=== PATIENT | female | born 1995 | race Caucasian/White ===

== ENCOUNTER 2017-08-07 15:01 | Emergency (ER) | payer MEDICAID, OTHER ==
[2017-08-07 15:37] VITALS: TEMP 98; O2SAT 99
[2017-08-07] MEDS ORDERED: Sodium Chloride 0.9% 1,000 ML IV STA (15:49)
--- NOTE | 2017-08-07 16:19 | ED PDOC ---
Arrival/HPI - General Chief Complaint: Headache Time Seen by Provider: 08/07/17 15:03 Historian: Patient - History of Present Illness Narrative History of Present Illness (Text): 08/07/17 15:49 22 year old female, whose past medical history includes frequent headaches, presents to the emergency department complaining of headache with associated nausea for over a month. Patient reports experiencing migraine around her eyes, behind her ears, and around head. Also patient is sensitive to light and feels it worsens her headache. She has vomited before due to mirgraine but usually experiences only nausea. Patient denies of any fever, abdominal pain, chest pain , shortness of breath, or any other complaints. No PMD Past Medical History - Provider Review Nursing Documentation Reviewed: Yes - Cardiac Hx Cardiac Disorders: No - Pulmonary Hx Respiratory Disorders: No - Neurological Hx Migraine: Yes - HEENT Hx HEENT Disorder: No - Renal Hx Renal Disorder: No - Endocrine/Metabolic Hx Endocrine Disorders: No - Hematological/Oncological Hx Blood Disorders: No - Integumentary Hx Dermatological Disorder: No - Musculoskeletal/Rheumatological Hx Musculoskeletal Disorders: No - Gastrointestinal Hx Gastrointestinal Disorders: No - Genitourinary/Gynecological Hx Genitourinary Disorders: No - Psychiatric Hx Psychophysiologic Disorder: No Hx Substance Use: No Family/Social History - Physician Review Nursing Documentation Reviewed: Yes Family/Social History: No Known Family HX Smoking Status: Never Smoked Hx Alcohol Use: No Hx Substance Use: No Allergies/Home Meds Allergies/Adverse Reactions: Allergies No Known Allergies Allergy (Verified 08/07/17 15:23) Review of Systems - Physician Review All systems were reviewed & negative as marked: Yes - Review of Systems Constitutional: absent: Fevers Eyes: Other (sensitivity to light worsening headache) Respiratory: absent: SOB Cardiovascular: absent: Chest Pain Gastrointestinal: Nausea. absent: Abdominal Pain Neurological: Headache Physical Exam Vital Signs Reviewed: Yes Vital Signs Temp Pulse Resp BP Pulse Ox 08/07/17 16:47 94 H 18 138/86 99 08/07/17 15:35 98.0 F 102 H 17 142/96 H 99 Temperature: Afebrile Blood Pressure: Normal Pulse: Regular Respiratory Rate: Normal Appearance: Positive for: Well-Appearing Pain Distress: None Mental Status: Positive for: Alert and Oriented X 3 - Systems Exam Head: Present: Atraumatic, Normocephalic Pupils: Present: PERRL Extroacular Muscles: Present: EOMI Conjunctiva: Present: Normal Mouth: Present: Moist Mucous Membranes Pharnyx: Present: Normal. No: ERYTHEMA, EXUDATE Neck: Present: Normal Range of Motion Respiratory/Chest: Present: Clear to Auscultation, Good Air Exchange. No: Respiratory Distress, Accessory Muscle Use Cardiovascular: Present: Regular Rate and Rhythm, Normal S1, S2. No: Murmurs Abdomen: Present: Normal Bowel Sounds. No: Tenderness, Distention, Peritoneal Signs Back: Present: Normal Inspection Upper Extremity: Present: Normal Inspection. No: Cyanosis, Edema Lower Extremity: Present: Normal Inspection. No: Edema Neurological: Present: GCS=15, CN II-XII Intact, Speech Normal, Motor Func Grossly Intact, Normal Sensory Function, Normal Cerebellar Funct, Norm Deep Tendon Reflexes, Gait Normal, Memory Normal, Normal 2Pt Descrimination Skin: Present: Warm, Dry, Normal Color. No: Rashes Psychiatric: Present: Alert, Oriented x 3, Normal Insight, Normal Concentration Medical Decision Making ED Course and Treatment: 08/07/17 15:53 Impression: 22 year old female with headache with associated nausea. Normal physical exam and normal neuro exam. Plan: -- Brain CT -- Toradol -- Reglan -- IV Fluids -- Urine Test -- Reassess and disposition Progress Notes: 08/07/2017 16:[address] IMPRESSION: Blurring of iniguez-white matter differentiation with effacement of the cortical sulci and slit-like ventricles. The differential considerations include cerebral edema, benign intracranial hypertension, and benign intracranial hypotension. An MRI of the brain without and with intravenous contrast is recommended of further evaluation. Dictator: Janina Grant MD 08/07/17 18:09 Patient with headache consistent with migraine; neuro exam is normal. Imaging is unremarkable. Patient feels much better s/p meds - ok for d/c to f/u in the medical clinic. - RAD Interpretation Radiology Orders: 08/07/17 15:48 Brain [HEAD W/O CONTRAST] [CT] Stat - Medication Orders Current Medication Orders: Discontinued Medications Sodium Chloride (Sodium Chloride 0.9%) 1,000 mls @ 999 mls/hr IV .Q1H1M STA Stop: 08/07/17 16:49 Last Admin: 08/07/17 16:17 Dose: 999 mls/hr eMAR Start Stop Document 08/07/17 16:17 IT (Rec: 08/07/17 16:17 IT [id number]) Intravenous Solution Start Date 08/07/17 Start Time 16:17 End Date 08/07/17 End time 17:17 Total Infusion Time 60 Ketorolac Tromethamine (Toradol) 30 mg IVP STAT STA Stop: 08/07/17 15:50 Last Admin: 08/07/17 16:17 Dose: 30 mg MAR Pain Assessment Document 08/07/17 16:17 IT (Rec: 08/07/17 16:17 IT [id number]) Pain Reassessment Is this a pain reassessment? No Sleep Is patient sleeping during reassessment? No Presence of Pain Presence of Pain Yes Pain Scale Used Pain Scale Used Numeric Location Pain Location Body Case Supervisor Description Description Constant Intensity of Pain at present 8 Pain Behavior Facial Grimacing IVP Administration Document 08/07/17 16:17 IT (Rec: 08/07/17 16:17 IT [id number]) Charges for Administration # of IVP Administrations 1 Metoclopramide HCl (Reglan) 10 mg IVP STAT STA Stop: 08/07/17 15:50 Last Admin: 08/07/17 16:44 Dose: 10 mg IVP Administration Document 08/07/17 16:44 IT (Rec: 08/07/17 16:47 IT [id number]) Charges for Administration # of IVP Administrations 1 - Scribe Statement The provider has reviewed the documentation as recorded by the Gem Florez Provider Scribe Attestation: All medical record entries made by the Gem were at my direction and personally dictated by me. I have reviewed the chart and agree that the record accurately reflects my personal performance of the history, physical exam, medical decision making, and the department course for this patient. I have also personally directed, reviewed, and agree with the discharge instructions and disposition. Disposition/Present on Arrival - Present on Arrival Any Indicators Present on Arrival: No History of DVT/PE: No History of Uncontrolled Diabetes: No Urinary Catheter: No History of Decub. Ulcer: No History Surgical Site Infection Following: None - Disposition Have Diagnosis and Disposition been Completed?: Yes Diagnosis: Migraine headache Disposition: HOME/ ROUTINE Disposition Time: 18:10 Patient Plan: Discharge Condition: GOOD Discharge Instructions (ExitCare): Migraine Headache (ED) Additional Instructions: Avoid any possible triggers that may induce migraines. Use naprosyn for pain; if no relief, use the fioricet as prescribed. Follow up in the medical clinic. Return to the emergency department if any new concerning symptoms. Prescriptions: Acetaminophen/Butalbital/Caf [Fioricet] 1 - 2 tab PO Q6H PRN #15 tab PRN Reason: Headache Naproxen [Naprosyn] 500 mg PO BID PRN #20 tab PRN Reason: Pain Referrals: [facility] [place] - Follow up with primary Forms: iRewind (Guyanese)
--- NOTE | 2017-08-07 16:42 | CT ---
PROCEDURE: CT HEAD WITHOUT CONTRAST. HISTORY: Headache COMPARISON: None available. TECHNIQUE: Axial computed tomography images were obtained through the head/brain without intravenous contrast. Radiation dose: Total exam DLP = 725.84 mGy-cm. This CT exam was performed using one or more of the following dose reduction techniques: Automated exposure control, adjustment of the mA and/or kV according to patient size, and/or use of iterative reconstruction technique. FINDINGS: HEMORRHAGE: No intracranial hemorrhage. BRAIN: [place]-white matter differentiation is preserved. There is no mass, mass effect or abnormal extra-axial fluid collection. There is no territorial infarction. VENTRICLES: The ventricles are normal in size, shape and configuration. CALVARIUM: The skull base and calvarium are normal. PARANASAL SINUSES: Predominantly clear. MASTOID AIR CELLS: Predominantly clear. OTHER FINDINGS: None. IMPRESSION: No acute intracranial abnormality.
[2017-08-07 16:48] VITALS: BP 138/86; PULSE 94; RESP 18
== END 2017-08-07 18:16 | disposition home or self-care (01) ==
LOC: ED 15:01
DX: G43.909 Migraine, unspecified, not intractable, without status migrainosus (principal)
CPT/HCPCS: 70450; 96361; 96374; 96375; 99285; J1885; J2765; J7040

== ENCOUNTER 2017-08-22 09:57 | Emergency (ER) | payer MEDICAID, OTHER ==
--- NOTE | 2017-08-22 10:00 | ED PDOC ---
Arrival/HPI - General Time Seen by Provider: 08/22/17 09:58 Historian: Patient - History of Present Illness Narrative History of Present Illness (Text): 08/22/17 10:00 22 y/o female, pmh including migraine headache, nkda, LMP 07/08/2017, , c/o vaginal spotting and pelvic cramp started last night but resolved. Pt. stated that she noticed vaginal bleeding stain on the tissue when going to the bathroom with mild pelvic pain, no abdominal pain, no nausea or vomiting, no fever or chills, no headache or night sweat, no dizziness, no other medical or psychological complaints. Past Medical History - Provider Review Nursing Documentation Reviewed: Yes - Infectious Disease Hx of Infectious Diseases: None - Cardiac Hx Cardiac Disorders: No - Pulmonary Hx Respiratory Disorders: No - Neurological Hx Migraine: Yes - HEENT Hx HEENT Disorder: No - Renal Hx Renal Disorder: No - Endocrine/Metabolic Hx Endocrine Disorders: No - Hematological/Oncological Hx Blood Disorders: No - Integumentary Hx Dermatological Disorder: No - Musculoskeletal/Rheumatological Hx Musculoskeletal Disorders: No - Gastrointestinal Hx Gastrointestinal Disorders: No - Genitourinary/Gynecological Hx Genitourinary Disorders: No - Psychiatric Hx Psychophysiologic Disorder: No Hx Substance Use: No - Anesthesia Hx Anesthesia: No Family/Social History - Physician Review Nursing Documentation Reviewed: Yes Family/Social History: Unknown Family HX Smoking Status: Never Smoked Hx Alcohol Use: No Hx Substance Use: No Allergies/Home Meds Allergies/Adverse Reactions: Allergies No Known Allergies Allergy (Verified 01/11/16 11:35) Review of Systems - Review of Systems Constitutional: absent: Fatigue, Fevers Eyes: absent: Vision Changes ENT: absent: Hearing Changes Respiratory: absent: SOB, Cough Cardiovascular: absent: Chest Pain Gastrointestinal: absent: Abdominal Pain, Nausea, Vomiting Genitourinary Female: Vaginal Bleeding. absent: Dysuria, Frequency, Hematuria, Urine Output Changes, Vaginal Discharge Musculoskeletal: absent: Arthralgias, Myalgias Skin: absent: Rash, Pruritis Neurological: absent: Headache, Dizziness Psychiatric: absent: Anxiety, Depression Physical Exam Vital Signs Reviewed: Yes Vital Signs Temp Pulse Resp BP Pulse Ox 08/22/17 12:04 75 18 118/69 100 08/22/17 10:42 98.9 F 81 16 121/71 100 Temperature: Afebrile Blood Pressure: Normal Pulse: Regular Respiratory Rate: Normal Appearance: Positive for: Well-Appearing, Non-Toxic, Comfortable Pain Distress: None Mental Status: Positive for: Alert and Oriented X 3 - Systems Exam Head: Present: Atraumatic, Normocephalic Pupils: Present: PERRL Extroacular Muscles: Present: EOMI Conjunctiva: Present: Normal Mouth: Present: Moist Mucous Membranes Neck: Present: Normal Range of Motion Respiratory/Chest: Present: Clear to Auscultation, Good Air Exchange. No: Respiratory Distress, Accessory Muscle Use Cardiovascular: Present: Regular Rate and Rhythm, Normal S1, S2. No: Murmurs Abdomen: Present: Normal Bowel Sounds. 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 No: Vaginal Discharge, Vaginal Bleeding, Vaginal Lesions, Adenexal Tenderness, Adenexal Mass, Cervical Motion Tendernes, Odor Back: Present: Normal Inspection Upper Extremity: Present: Normal Inspection. No: Cyanosis, Edema Lower Extremity: Present: Normal Inspection. No: Edema Neurological: Present: GCS=15, Speech Normal, Motor Func Grossly Intact, Gait Normal, Memory Normal Skin: Present: Warm, Dry, Normal Color. No: Rashes Psychiatric: Present: Alert, Oriented x 3, Normal Insight, Normal Concentration Medical Decision Making ED Course and Treatment: 08/22/17 10:29 -labs/ua -transvaginal sonogram -observe and reassess 08/22/17 13:57 -Labs are non-significant except beta hcg 8229 -UA show no UTI -Blood type: B+ -Sonogram show: An intrauterine gestation is identified however only a yolk sac is present. The pole is not yet identified. The average zones ultrasonic age is approximately 5 weeks 2 days which is borderline concordant with menstrual dates as discussed above. Consider early intrauterine gestation versus failure of gestation. Ectopic gestation is not demonstrated and is not favored. Further clinical correlation is advised a follow-up ultrasound is advised in 1 week or earlier if indicated. -Pt. has no active vaginal bleeding, no pelvic/abdominal pain. -Case discussed with DR. Forrester, he agreed on the diagnosis/treatment/discharge plan. -Discharge home with education on pelvic rest, no sex/strenuous exercise or activity until you are clear by the obgyn, follow up with your own pmd and obgyn within 2 days and repeat the beta hcg as it is 8229 today plus follow up the sonogram, return to the ER for any new or worsening signs or symptoms. - Lab Interpretations Lab Results: 08/22/17 10:47 08/22/17 10:47 Lab Results 08/22/17 12:00: Blood Type Confirm B POSITIVE 08/22/17 11:53: Blood Type B POSITIVE, Antibody Screen Negative, BBK History Checked No verified bt 08/22/17 10:47: Beta HCG, Quant 8229.10 H 08/22/17 10:47: Sodium 138, Potassium 4.2, Chloride 103, Carbon Dioxide 24, Anion Gap 15, BUN 9, Creatinine 0.5 L, Est GFR ( Amer) > 60, Est GFR (Non -Af Amer) > 60, Random Glucose 98, Calcium 9.1, Total Bilirubin 0.9, AST 29, ALT 41, Alkaline Phosphatase 59, Total Protein 7.7, Albumin 4.6, Globulin 3.1, Albumin/Globulin Ratio 1.5 08/22/17 10:47: Urine Color Yellow, Urine Appearance Clear, Urine pH 6.0, Ur Specific [place] >= 1.030, Urine Protein Negative, Urine Glucose (UA) Negative, Urine Ketones Negative, Urine Blood Negative, Urine Nitrate Negative, Urine Bilirubin Negative, Urine Urobilinogen 0.2, Ur Leukocyte Esterase Negative 08/22/17 10:47: WBC 8.9, RBC 4.46, Hgb 12.3, Hct 37.8, MCV 84.8, MCH 27.6, MCHC 32.5, RDW 13.7, Plt Count 355, MPV 9.3, Gran % 65.5, Lymph % (Auto) 26.0, Jack % (Auto) 7.2 H, Eos % (Auto) 1.1 L, Baso % (Auto) 0.2, Gran # 5.83, Lymph # 2.3 , Jack # 0.6, Eos # 0.1, Baso # 0.02 Interpretation: Abnormal lab values (beta hcg 8229) - RAD Interpretation Radiology Orders: 08/22/17 10:25 OB TRANSVAGINAL [US] Stat HISTORY: , spotting, on and off pain COMPARISON: None available. TECHNIQUE: Transvaginal obstetric ultrasound was performed in longitudinal and transverse planes. FINDINGS: UTERUS: Measures 8.4 x 4.3 x 5.8 cm. Uterus appears anteverted and is mildly enlarged due to an intrauterine gestation with yolk sac identified but no definable pole at this time. The mean sac diameter measures 1.2 cm corresponds to an approximate gestational age of 5 weeks 2 days. The last menstrual period is reported 04/14/2018 suggesting in his gestational age of 6 weeks 3 days. The finding may represent early viable intrauterine gestation however this is not been proven as a pole is not identified. Consider a failure of gestation. An ectopic is not demonstrated and is unlikely with the bilateral necks compartment unremarkable appearing grossly. ENDOMETRIUM: Intrauterine gestation as discussed above. CERVIX: No cervical abnormality identified. RIGHT OVARY: Measures 3.4 x 2.4 x 2.7 cm. No solid mass. Normal flow. LEFT OVARY: Measures 3.6 x 2.0 x 2.1 cm. No solid mass. Normal flow. FREE FLUID: No significant free fluid noted. OTHER FINDINGS: None. IMPRESSION: An intrauterine gestation is identified however only a yolk sac is present. The pole is not yet identified. The average zones ultrasonic age is approximately 5 weeks 2 days which is borderline concordant with menstrual dates as discussed above. Consider early intrauterine gestation versus failure of gestation. Ectopic gestation is not demonstrated and is not favored. Further clinical correlation is advised a follow-up ultrasound is advised in 1 week or earlier if indicated. Technology Sales Specialist: Radiologist - PA / FINANCE CONSULTANT / Resident Statement / has reviewed & agrees with the documentation as recorded. Disposition/Present on Arrival - Present on Arrival Any Indicators Present on Arrival: No History of DVT/PE: No History of Uncontrolled Diabetes: No Urinary Catheter: No History of Decub. Ulcer: No History Surgical Site Infection Following: None - Disposition Have Diagnosis and Disposition been Completed?: Yes Diagnosis: Vaginal bleeding in Disposition: HOME/ ROUTINE Disposition Time: 13:11 Patient Plan: Discharge Patient Problems: Current Active Problems Problem Status Onset Vaginal bleeding in Acute Condition: GOOD Additional Instructions: -Discharge home with education on pelvic rest, no sex/strenuous exercise or activity until you are clear by the obgyn, return to the ER for any new or worsening signs or symptoms. Referrals: PCP,NO [Primary Care Provider] - Follow up with primary Isreal Al MD [Staff Provider] - Follow up with primary Forms: WORK NOTE
[2017-08-22 10:12] VITALS: BMI 34.2
[2017-08-22 10:43] VITALS: TEMP 98.9; O2SAT 100
[2017-08-22 10:59] LABS: BASO # 0.02 K/mm3 (0.0-2.0); BASO % 0.2 % (0.0-3.0); EOS # 0.1 (0.0-0.7); EOS % 1.1 % (1.5-5.0); GRAN # 5.83 (1.4-6.5); GRAN % 65.5 % (50.0-68.0); HEMATOCRIT 37.8 % (36.0-48.0); LYMPH # 2.3 (1.2-3.4); MEAN CELL VOLUME 84.8 fl (80.0-105.0); MEAN CORPUSCULAR HEMOGLOBIN 27.6 pg (25.0-35.0); MEAN CORPUSCULAR HGB CONC 32.5 g/dl (31.0-37.0); MEAN PLATELET VOLUME 9.3 fl (7.0-11.0); MONO # 0.6 (0.1-0.6); MONO % 7.2 % (1.0-6.0); RED CELL DISTRIBUTION WIDTH 13.7 % (11.5-14.5); WHITE BLOOD COUNT 8.9 10^3/ul (4.5-11.0)
[2017-08-22 11:00] LABS: URINE BILIRUBIN NEGATIVE (NEGATIVE); URINE BLOOD NEGATIVE (NEGATIVE); URINE GLUCOSE (UA) NEGATIVE (NEGATIVE); URINE KETONE NEGATIVE (NEGATIVE); URINE LEUKOCYTE ESTERASE NEGATIVE Leu/uL (NEGATIVE); URINE PROTEIN NEGATIVE mg/dL (<30 mg/dL); URINE UROBILINOGEN 0.2 E.U./dL (<1 E.U./dL)
[2017-08-22 11:01] LABS: URINE APPEARANCE CLEAR (CLEAR); URINE COLOR YELLOW (YELLOW)
[2017-08-22 11:08] LABS: ALB/GLOB RATIO 1.5 (1.1-1.8); ALKALINE PHOSPHATASE 59 U/L (38-126); ALT/SGPT 41 U/L (7-56); AST/SGOT 29 U/L (14-36); BILIRUBIN,TOTAL 0.9 mg/dL (0.2-1.3); BLOOD UREA NITROGEN 9 mg/dL (7-21); CALCIUM 9.1 mg/dL (8.4-10.5); CARBON DIOXIDE 24 mmol/L (21-33); CHLORIDE 103 mmol/L (98-107); GFR AFRICAN-AMERICAN > 60; GLUCOSE,RANDOM 98 mg/dL (70-110); POTASSIUM 4.2 mmol/L (3.6-5.0); SODIUM 138 mmol/L (132-148); TOTAL PROTEIN 7.7 g/dL (5.8-8.3)
[2017-08-22 12:05] VITALS: RESP 18
--- NOTE | 2017-08-22 13:50 | US ---
HISTORY: , spotting, on and off pain COMPARISON: None available. TECHNIQUE: Transvaginal obstetric ultrasound was performed in longitudinal and transverse planes. FINDINGS: UTERUS: Measures 8.4 x 4.3 x 5.8 cm. Uterus appears anteverted and is mildly enlarged due to an intrauterine gestation with yolk sac identified but no definable pole at this time. The mean sac diameter measures 1.2 cm corresponds to an approximate gestational age of 5 weeks 2 days. The last menstrual period is reported 04/14/2018 suggesting in his gestational age of 6 weeks 3 days. The finding may represent early viable intrauterine gestation however this is not been proven as a pole is not identified. Consider a failure of gestation. An ectopic is not demonstrated and is unlikely with the bilateral necks compartment unremarkable appearing grossly. ENDOMETRIUM: Intrauterine gestation as discussed above. CERVIX: No cervical abnormality identified. RIGHT OVARY: Measures 3.4 x 2.4 x 2.7 cm. No solid mass. Normal flow. LEFT OVARY: Measures 3.6 x 2.0 x 2.1 cm. No solid mass. Normal flow. FREE FLUID: No significant free fluid noted. OTHER FINDINGS: None. IMPRESSION: An intrauterine gestation is identified however only a yolk sac is present. The pole is not yet identified. The average zones ultrasonic age is approximately 5 weeks 2 days which is borderline concordant with menstrual dates as discussed above. Consider early intrauterine gestation versus failure of gestation. Ectopic gestation is not demonstrated and is not favored. Further clinical correlation is advised a follow-up ultrasound is advised in 1 week or earlier if indicated.
[2017-08-22 13:54] VITALS: BP 116/65; PULSE 74
== END 2017-08-22 14:10 | disposition home or self-care (01) ==
LOC: ED 09:57
DX: O46.8X1 Other antepartum hemorrhage, first trimester (principal); Z3A.01 Less than 8 weeks gestation of pregnancy